=== PATIENT | female | born 1985 | race Caucasian/White ===

== ENCOUNTER 2020-08-28 13:32 | Observation (INO) | payer OTHER ==
[2020-08-28] MEDS ORDERED: ONDANSETRON 4 MG/2 ML VIAL ONE (14:30)
[2020-08-28] MEDS ORDERED: MORPHINE 4 MG/ML SYR ONE (14:30)
[2020-08-28] MEDS ORDERED: NA CHLORIDE 0.9% 1,000 ML ONE ×2 (14:31→21:11)
[2020-08-28 14:53] LABS: Absolute Lymphocytes (CBC) 2.4 K/uL (0.7-4.9); Basophils % 0.4 % (0-1.3); Hematocrit 43.1 % (36.0-45.0); Lymphocytes % 22.6 % (15.3-44.8); MPV 7.8 fL (7.6-11.3); RBC Red Blood Cell Count 5.19 M/uL (3.86-4.86)
--- NOTE | 2020-08-28 15:10 | RAD REPORT ---
EXAM DESCRIPTION: CTAbdomen Pelvis W Contrast - 08/28/2020 2:57 pm CLINICAL HISTORY: Abdominal pain. ABD PAIN COMPARISON: No comparisons TECHNIQUE: Biphasic CT imaging of the abdomen and pelvis was performed with 100 ml non-ionic IV cont rast. All CT scans are performed using dose optimization technique as appropriate and may include automated exposure control or mA/KV adjustment according to patient size. FINDINGS: The lung bases are clear. The liver, spleen, pancreas, adrenal glands and kidneys are within normal limits. No bowel obstruction, free air, free fluid or abscess. The appendix is normal. No evidence of signi ficant lymphadenopathy. No suspicious bony findings. IMPRESSION: No acute intra-abdominal or pelvic finding.
[2020-08-28 15:14] LABS: ALT/SGPT 33 U/L (12-78); AST/SGOT 14 U/L (15-37); Albumin 4.3 g/dL (3.4-5.0); Alkaline Phosphatase 90 U/L (45-117); BUN Blood Urea Nitrogen 9 mg/dL (7-18); Bicarbonate 28 mmol/L (21-32); Bilirubin Direct 0.2 mg/dL (0-0.2); Bilirubin Total 0.8 mg/dL (0.2-1.0); Glucose Level 89 mg/dL (74-106); Lipase 107 U/L (73-393); Potassium 3.5 mmol/L (3.5-5.1); Protein, Total 8.5 g/dL (6.4-8.2); Sodium Level 140 mmol/L (136-145)
--- NOTE | 2020-08-28 16:28 | RAD REPORT ---
EXAM DESCRIPTION: US - Abdomen Exam Limited - 08/28/2020 4:16 pm CLINICAL HISTORY: ABD PAIN COMPARISON: No comparisons FINDINGS: The gallbladder demonstrates no gallstones. No pericholecystic fluid or gallbladder wall t hickening. The common bile duct is normal measuring 3 mm. The liver demonstrates no findings of intrahepatic biliary dilatation. IMPRESSION: Unremarkable examination.
--- NOTE | 2020-08-28 16:35 | ER ---
Nurse's Notes [facility] Name: Ros Moreira Age: 35 yrs Sex: Female : 1985 Arrival Date: 08/28/2020 Time: 13:35 Bed 24 Private MD: Diagnosis: Lower abdominal pain, unspecified Presentation: 08/28 13:40 Acuity: STEPHEN 3 dm5 14:00 Chief complaint: Patient states: RLQ pain started this morning. Sent over here by zb provider. rates pain at 3/10 throbbing sharp pain. Coronavirus screen: At this time, the client does not indicate any symptoms associated with coronavirus-19. Ebola Screen: No symptoms or risks identified at this time. Initial Sepsis Screen: Does the patient meet any 2 criteria? No. Patient's initial sepsis screen is negative. Does the patient have a suspected source of infection? No. Patient's initial sepsis screen is negative. Risk Assessment: Do you want to hurt yourself or someone else? Patient reports no desire to harm self or others. Onset of symptoms was August 28, 2020. 14:00 Method Of Arrival: Ambulatory zb Triage Assessment: 15:29 General: Appears. 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 - Social history:: Smoking status: Patient denies any tobacco usage or history of. Screenin:00 Fall Risk None identified. zb 15:28 Abuse screen: Denies threats or abuse. Denies injuries from another. Nutritional zb screening: No deficits noted. Tuberculosis screening: No symptoms or risk factors identified. Assessment: 15:00 General: Appears in no apparent distress. uncomfortable, Behavior is calm, cooperative, zb appropriate for age. Pain: Complains of pain in right lower quadrant Pain does not radiate. Pain currently is 3 out of 10 on a pain scale. Quality of pain is described as sharp, throbbing, Is intermittent. Neuro: Level of Consciousness is awake, alert, obeys commands, Oriented to person, place, time, situation. Cardiovascular: Capillary refill < 3 seconds in bilateral fingers Patient's skin is warm and dry. Respiratory: Airway is patent Respiratory effort is even, unlabored, Respiratory pattern is regular, symmetrical, Breath sounds are clear bilaterally. GI: Abdomen is round non-distended, Bowel sounds present X 4 quads. Abd is soft and non tender in right upper quadrant, left upper quadrant and left lower quadrant Abdomen is tender to palpation in right lower quadrant Reports lower abdominal pain. : No signs and/or symptoms were reported regarding the genitourinary system. EENT: No signs and/or symptoms were reported regarding the EENT system. Derm: Skin is intact, is healthy with good turgor, Skin is dry, Skin is normal. Musculoskeletal: Circulation, motion, and sensation intact. Capillary refill < 3 seconds, in bilateral fingers. Range of motion: intact in all extremities. 16:00 Reassessment: Patient appears in no apparent distress at this time. Patient and/or zb family updated on plan of care and expected duration. Pain level reassessed. Patient is alert, oriented x 3, equal unlabored respirations, skin warm/dry/pink. pt up ad vicki able to ambulated to restroom. 17:00 Reassessment: Patient appears in no apparent distress at this time. Patient and/or zb family updated on plan of care and expected duration. Pain level reassessed. Patient is alert, oriented x 3, equal unlabored respirations, skin warm/dry/pink. 18:00 Reassessment: Patient appears in no apparent distress at this time. Patient and/or zb family updated on plan of care and expected duration. Pain level reassessed. Patient is alert, oriented x 3, equal unlabored respirations, skin warm/dry/pink. no c/o at this time. pt given lemon swabs for month dryness. 19:00 Reassessment: Patient appears in no apparent distress at this time. Patient and/or zb family updated on plan of care and expected duration. Pain level reassessed. Patient is alert, oriented x 3, equal unlabored respirations, skin warm/dry/pink. educated pt on plan of care. family left from bedside. 20:00 Reassessment: Patient appears in no apparent distress at this time. Patient and/or zb family updated on plan of care and expected duration. Pain level reassessed. Patient is alert, oriented x 3, equal unlabored respirations, skin warm/dry/pink. pt resting in bed, awaiting transfer upstairs. 21:00 Reassessment: Patient appears in no apparent distress at this time. Patient and/or zb family updated on plan of care and expected duration. Pain level reassessed. Patient is alert, oriented x 3, equal unlabored respirations, skin warm/dry/pink. discussed plan of care, pt asked if she was comfortable. no c/o at this time. pain remains the same. 22:00 Reassessment: Patient appears in no apparent distress at this time. Patient and/or zb family updated on plan of care and expected duration. Pain level reassessed. notified pt that report had been given. Vital Signs: 14:00 BP 109 / 64; Pulse 79; Resp 18; Pulse Ox 100% on R/A; Weight 108.86 kg; Height 5 ft. 4 zb in. (162.56 cm); Pain 3/10; 16:30 BP 102 / 55; Pulse 69; Resp 18; Pulse Ox 99% on R/A; zb 19:36 BP 104 / 56; Pulse 78; Resp 20; Pulse Ox 98% on R/A; dh4 21:30 BP 99 / 59; Pulse 69; Resp 18; Pulse Ox 96% on R/A; zb 22:30 BP 105 / 63; Pulse 70; Resp 16; Pulse Ox 100% on R/A; zb 14:00 Body Mass Index 41.20 (108.86 kg, 162.56 cm) zb ED Course: 13:35 Patient arrived in ED. ag5 13:38 [facility]C [facility] kb 13:38 Héctor Alvarado MD is Attending Physician. kb 14:11 Luiza Nelson RN is Primary Nurse. zb 14:29 Triage completed. dm5 14:30 Inserted saline lock: 20 gauge in right antecubital area, using aseptic technique. zb 14:57 CT Abd/Pelvis - IV Contrast Only In Process Unspecified. EDMS 15:00 Patient has correct armband on for positive identification. Bed in low position. Call zb light in reach. Side rails up X 1. Adult w/ patient. Pulse ox on. NIBP on. Door closed. Noise minimized. 15:32 Arm band placed on right wrist. zb 16:16 US Abdomen Limited In Process Unspecified. EDMS 16:34 Travis Crook MD is Hospitalizing Provider. kb 20:12 COVID swab sent to lab. sg 22:40 No provider procedures requiring assistance completed. Patient admitted, IV remains in zb place. Administered Medications: 14:42 Drug: morphine 4 mg Route: IVP; Site: right antecubital; zb 22:42 Follow up: Response: No adverse reaction zb 14:42 Drug: Zofran (Ondansetron) 4 mg Route: IVP; Site: right antecubital; zb 22:42 Follow up: Response: No adverse reaction zb 14:42 Drug: NS 0.9% 1000 ml Route: IV; Rate: 1000 ml; Site: right antecubital; zb 22:42 Follow up: Response: No adverse reaction; IV Status: Completed infusion; IV Intake: zb 1000ml 17:29 Drug: TORadol - Ketorolac 15 mg Route: IVP; Site: right antecubital; zb 22:15 Follow up: Response: No adverse reaction zb Intake: 22:42 IV: 1000ml; Total: 1000ml. zb Outcome: 16:34 Decision to Hospitalize by Provider. kb 22:41 Admitted to Med/surg accompanied by tech, room 217, with chart, Report called to isabel Carey RN second floor 22:41 Condition: stable 22:41 Instructed on the need for admit. 22:53 Patient left the ED. zb Signatures: Dispatcher [employer] EDMS Amanda Barnes, OPERATIONS MANAGER ASSISTANT-C OPERATIONS MANAGER ASSISTANT-Francheska Shaw, RN RN Juanito Howell RN RN Abby Plummer Donald [facility] Luiza Nelson RN RN isabel Corrections: (The following items were deleted from the chart) 23:51 21:00 Reassessment: Patient appears in no apparent distress at this time. Patient zb and/or family updated on plan of care and expected duration. Pain level reassessed. Patient is alert, oriented x 3, equal unlabored respirations, skin warm/dry/pink. notified pt that report had been given. zb
--- NOTE | 2020-08-28 16:35 | EDPHYS ---
Physician Documentation [facility] Name: Ros Moreira Age: 35 yrs Sex: Female : 1985 Arrival Date: 08/28/2020 Time: 13:35 Bed 24 Private MD: ED Physician Héctor Alvarado HPI: 08/28 14:08 This 35 yrs old Female presents to ER via Unassigned with complaints of kb Appendicitis. 14:08 The patient presents with abdominal pain right lower quadrant. Onset: The kb symptoms/episode began/occurred this morning, at 07:30. The symptoms do not radiate. Associated signs and symptoms: none. The symptoms are described as constant. Modifying factors: The symptoms are alleviated by nothing, the symptoms are aggravated by pressure. Severity of pain: At its worst the pain was moderate in the emergency department the pain is unchanged. The patient has not experienced similar symptoms in the past. The patient has been recently seen by a physician: the patient's primary care provider, earlier today, with similar presenting complaints, and was sent to the [facility] Emergency Department for further evaluation. 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 - Social history:: Smoking status: Patient denies any tobacco usage or history of. ROS: 14:08 Constitutional: Negative for fever, chills, and weight loss, Cardiovascular: Negative kb for chest pain, palpitations, and edema, Respiratory: Negative for shortness of breath, cough, wheezing, and pleuritic chest pain, Back: Negative for injury and pain, MS/Extremity: Negative for injury and deformity, Skin: Negative for injury, rash, and discoloration, Neuro: Negative for headache, weakness, numbness, tingling, and seizure. 14:08 Abdomen/GI: Positive for abdominal pain, Negative for nausea, vomiting, and diarrhea. Exam: 14:08 Constitutional: This is a well developed, well nourished patient who is awake, alert, kb and in no acute distress. Head/Face: Normocephalic, atraumatic. Chest/axilla: Normal chest wall appearance and motion. Nontender with no deformity. No lesions are appreciated. Cardiovascular: Regular rate and rhythm with a normal S1 and S2. No gallops, murmurs, or rubs. Normal PMI, no JVD. No pulse deficits. Respiratory: Lungs have equal breath sounds bilaterally, clear to auscultation and percussion. No rales, rhonchi or wheezes noted. No increased work of breathing, no retractions or nasal flaring. Skin: Warm, dry with normal turgor. Normal color with no rashes, no lesions, and no evidence of cellulitis. MS/ Extremity: Pulses equal, no cyanosis. Neurovascular intact. Full, normal range of motion. Neuro: Awake and alert, GCS 15, oriented to person, place, time, and situation. Cranial nerves II-XII grossly intact. Motor strength 5/5 in all extremities. Sensory grossly intact. Cerebellar exam normal. Normal gait. 14:08 Abdomen/GI: Inspection: abdomen appears normal, Bowel sounds: normal, in all quadrants, Palpation: soft, in all quadrants, mild abdominal tenderness, in the right upper quadrant and right lower quadrant. Vital Signs: 14:00 BP 109 / 64; Pulse 79; Resp 18; Pulse Ox 100% on R/A; Weight 108.86 kg; Height 5 ft. 4 zb in. (162.56 cm); Pain 3/10; 16:30 BP 102 / 55; Pulse 69; Resp 18; Pulse Ox 99% on R/A; zb 19:36 BP 104 / 56; Pulse 78; Resp 20; Pulse Ox 98% on R/A; dh4 21:30 BP 99 / 59; Pulse 69; Resp 18; Pulse Ox 96% on R/A; zb 22:30 BP 105 / 63; Pulse 70; Resp 16; Pulse Ox 100% on R/A; zb 14:00 Body Mass Index 41.20 (108.86 kg, 162.56 cm) zb MDM: 13:38 Patient medically screened. kb 14:06 Data reviewed: vital signs, nurses notes. Data interpreted: Pulse oximetry: on room air kb is 100 %. Interpretation: normal. 16:23 Physician consultation: Travis Crook MD in the emergency department to see patient at kb 16:23. 16:23 Physician consultation: Berny Mccord MD was contacted at 16:20, regarding patient's kb condition. 16:32 Counseling: I had a detailed discussion with the patient and/or guardian regarding: the kb historical points, exam findings, and any diagnostic results supporting the discharge/admit diagnosis, lab results, radiology results, the need for further work-up and treatment in the hospital. 08/28 13:47 Order name: Basic Metabolic Panel; Complete Time: 15:21 kb 08/28 13:47 Order name: CBC with Diff; Complete Time: 15:24 kb 08/28 13:47 Order name: Hepatic Function; Complete Time: 15:21 kb 08/28 13:47 Order name: Lipase; Complete Time: 15:21 kb 08/28 14:48 Order name: CREATININE WHOLE BLOOD; Complete Time: 14:53 EDMS 08/28 14:51 Order name: Urine Dipstick--Ancillary (enter results); Complete Time: 19:37 em1 08/28 13:47 Order name: CT Abd/Pelvis - IV Contrast Only; Complete Time: 15:14 kb 08/28 14:51 Order name: Urine --Ancillary (enter results); Complete Time: 19:37 em1 08/28 15:14 Order name: US Abdomen Limited; Complete Time: 16:29 kb 08/28 16:54 Order name: COVID-19 kb 08/28 21:36 Order name: SARS-COV-2 RT PCR; Complete Time: 21:41 EDMS 08/28 13:47 Order name: IV Saline Lock; Complete Time: 14:42 kb 08/28 13:47 Order name: Labs collected and sent; Complete Time: 14:42 kb Administered Medications: 14:42 Drug: morphine 4 mg Route: IVP; Site: right antecubital; zb 22:42 Follow up: Response: No adverse reaction zb 14:42 Drug: Zofran (Ondansetron) 4 mg Route: IVP; Site: right antecubital; zb 22:42 Follow up: Response: No adverse reaction zb 14:42 Drug: NS 0.9% 1000 ml Route: IV; Rate: 1000 ml; Site: right antecubital; zb 22:42 Follow up: Response: No adverse reaction; IV Status: Completed infusion; IV Intake: zb 1000ml 17:29 Drug: TORadol - Ketorolac 15 mg Route: IVP; Site: right antecubital; zb 22:15 Follow up: Response: No adverse reaction zb Disposition: 08/29 07:27 Co-signature as Attending Physician, Héctor Alvarado MD I agree with the assessment and kdr plan of care. Disposition: 08/28/20 16:34 Hospitalization ordered by Travis Crook for Observation. Preliminary diagnosis is Lower abdominal pain, unspecified. - Bed requested for Telemetry/MedSurg (observation). - Status is Observation. zb - Condition is Stable. - Problem is new. - Symptoms are unchanged. Signatures: Dispatcher [employer] EDMS Amanda Barnes, HELDER-C SUSTAINABILITY OFFICER-Ramyb Héctor Alvarado MD MD [facility] Sandra Chapman RN RN tl1 Luiza Nelson RN RN zb Corrections: (The following items were deleted from the chart) 08/28 21:38 16:34 Hospitalization Ordered by Travis Crook MD for Observation. Preliminary tl1 diagnosis is Lower abdominal pain, unspecified. Bed requested for Telemetry/MedSurg (observation). Status is Observation. Condition is Stable. Problem is new. Symptoms are unchanged. kb 22:53 21:38 08/28/2020 16:34 Hospitalization Ordered by Travis Crook MD for Observation. zb Preliminary diagnosis is Lower abdominal pain, unspecified. Bed requested for Telemetry/MedSurg (observation). Status is Observation. Condition is Stable. Problem is new. Symptoms are unchanged. tl1
[2020-08-28] MEDS ORDERED: KETOROLAC 30 MG/ML INJ ONE (17:39)
[2020-08-28 19:12] LABS: Urine Blood NEGATIVE (NEG); Urine Glucose NEGATIVE (NEG); Urine Protein NEGATIVE (NEG); Urine Specific Gravity >1.030 (1.005-1.030)
[2020-08-28 19:45] VITALS: BMI 37.5
[2020-08-28] MEDS ORDERED: MORPHINE 4 MG/ML SYR IV PRN (21:01)
[2020-08-28] MEDS ORDERED: ONDANSETRON 4 MG/2 ML VIAL IV PRN (21:01)
[2020-08-28] MEDS: NA CHLORIDE 0.9% 1,000 ML IV SCH (21:01)
[2020-08-29] MEDS: NA CHLORIDE 0.9% 1,000 ML IV SCH (04:40)
[2020-08-29 06:15] LABS: Absolute Lymphocytes (CBC) 2.7 K/uL (0.7-4.9); Basophils % 0.8 % (0-1.3); Hematocrit 36.8 % (36.0-45.0); Lymphocytes % 29.8 % (15.3-44.8); MPV 7.9 fL (7.6-11.3)
[2020-08-29 06:31] LABS: BUN Blood Urea Nitrogen 11 mg/dL (7-18); Bicarbonate 27 mmol/L (21-32); Glucose Level 84 mg/dL (74-106); Potassium 3.8 mmol/L (3.5-5.1); Sodium Level 143 mmol/L (136-145)
[2020-08-29 08:13] VITALS: BP 98/53; TEMP 97.4
--- NOTE | 2020-08-29 08:39 | RAD REPORT ---
EXAM DESCRIPTION: CT - Abdomen Pelvis Wo Contrast - 08/29/2020 8:15 am CLINICAL HISTORY: Abdominal pain. lower abd pain COMPARISON: Abdomen Pelvis W Contrast dated 08/28/2020 TECHNIQUE: CT imaging of the abdomen and pelvis was performed without contrast. Solid organ and vasc ular assessment is limited due to lack of IV contrast. All CT scans are performed using dose optimization technique as appropriate and may include automated exposure control or mA/KV adjustment according to patient size. FINDINGS: The lower lung osorio are clear. The liver, spleen, pancreas, adrenal glands and kidneys are within normal limits for a limited non-co ntrast examination. No bowel obstruction, free air, free fluid or abscess. The appendix is normal. Moderate L5-S1 spondylosis. IMPRESSION: No acute intra-abdominal or pelvic findings. A limited non-contrast examination was performed as detailed.
[2020-08-29 09:22] VITALS: O2SAT 98
== END 2020-08-29 11:38 | disposition left against medical advice (07) ==
LOC: ER 13:32 → ERHOLD 16:37 → 2ND 22:18
PROVIDERS: ADMIT Surgery; ATTEND Surgery
DX: R10.31 Right lower quadrant pain (principal); Z53.20 Procedure and treatment not carried out because of patient's decision for unspecified reasons; Z20.828 Contact with and (suspected) exposure to other viral communicable diseases
CPT/HCPCS: 96361; 85025 ×2; 80048 ×2; 36415; 81025; 82565; 80076; 81003; 83690; 74176; 74177; 76705; 96375; 96374; 99285; U0003; Q9967; J7030 ×3; J2405